=== PATIENT | male | born 1990 ===

== ENCOUNTER 2017-03-08 09:47 | Emergency (ER) | payer MEDICAID ==
[2017-03-08 09:53] VITALS: RESP 18
[2017-03-08] MEDS ORDERED: Sodium Chloride 0.9% 1,000 ML IV ONE (10:03)
[2017-03-08] MEDS ORDERED: Sodium Chloride 0.9% 1,000 ML ONE (10:05)
[2017-03-08 10:23] LABS: URINE AMORPHOUS SEDIMENT RARE /ul (<OCC); URINE BACTERIA RARE (<OCC); URINE BILIRUBIN NEGATIVE (NEGATIVE); URINE BLOOD NEGATIVE (NEGATIVE); URINE CLARITY Hazy (Clear); URINE COLOR Yellow (YELLOW); URINE GLUCOSE (UA) NORMAL (Normal); URINE LEUKOCYTE ESTERASE NEG Leu/uL (Negative); URINE NITRATE NEGATIVE (NEGATIVE); URINE PROTEIN 1+ mg/dL (NEGATIVE); URINE UROBILINOGEN NORMAL mg/dL (0.2-1.0)
[2017-03-08 10:25] LABS: BASO # 0.1 K/uL (0.0-0.2); BASO % 0.4 % (0.0-2.0); EOS # 0.2 K/uL (0.0-0.7); HEMOGLOBIN 14.1 g/dL (12.0-18.0); LYMPH # 2.5 K/uL (1.0-4.3); MEAN CELL VOLUME 82.1 fL (80.0-94.0); MEAN CORPUSCULAR HEMOGLOBIN 28.8 pg (27.0-31.0); MEAN PLATELET VOLUME 8.4 fL (7.2-11.7); MONO # 2.4 K/uL (0.0-0.8); MONO % 11.4 % (0.0-10.0); NEUT # 15.7 K/uL (1.8-7.0); NEUT % 75.2 % (50.0-75.0); RBC 4.92 Mil/uL (4.40-5.90); RED CELL DISTRIBUTION WIDTH 14.2 % (11.5-14.5)
--- NOTE | 2017-03-08 10:28 | RAD ---
HISTORY: abd pain COMPARISON: None available FINDINGS: BOWEL: Moderate constipation. Nonobstructive bowel gas pattern. No definite free air. BONES: No acute osseous abnormality is detected. OTHER FINDINGS: None. IMPRESSION: Moderate constipation.
[2017-03-08 10:31] LABS: WHITE BLOOD COUNT 20.9 K/uL (4.8-10.8)
--- NOTE | 2017-03-08 10:36 | C.PDOC ---
History Of Present Illness 26 year old male presents to the ED with complaints of vomiting, constipation, and abdominal pain for 10 days with associated decreased appetite. Patient states pain is a "cramping" sensation but notes today the pain is sharp, prompting visit. Last bowel movement was yesterday and patient denies fever, dysuria, or back pain. Time Seen by Provider: 03/08/17 09:57 Chief Complaint (Nursing): Abdominal Pain History Per: Patient History/Exam Limitations: no limitations Onset/Duration Of Symptoms: Days (10 days ) Current Symptoms Are (Timing): Still Present Location Of Pain/Discomfort: Epigastric, LUQ Quality Of Discomfort: Sharp, Cramping Associated Symptoms: Nausea, Vomiting, Constipation. denies: Fever, Chills, Diarrhea Last Bowel Movement: Yesterday Recent travel outside of the [place]: No Past Medical History Reviewed: Historical Data, Nursing Documentation, Vital Signs Vital Signs: Last Vital Signs Temp 98.3 F 03/08/17 12:21 Pulse 69 03/08/17 12:21 Resp 18 03/08/17 12:21 BP 150/93 H 03/08/17 12:21 Pulse Ox 99 03/08/17 13:55 - Medical History PMH: Asthma Surgical History: No Surg Hx Family History: States: Unknown Family Hx - Social History Hx Alcohol Use: No Hx Substance Use: Yes - Immunization History Hx Tetanus Toxoid Vaccination: No Hx Influenza Vaccination: No Hx Pneumococcal Vaccination: No Review Of Systems Constitutional: Negative for: Fever, Chills Cardiovascular: Negative for: Chest Pain Respiratory: Negative for: Shortness of Breath Gastrointestinal: Positive for: Nausea, Vomiting, Abdominal Pain, Constipation. Negative for: Diarrhea Genitourinary: Negative for: Dysuria Neurological: Negative for: Headache, Dizziness Physical Exam - Physical Exam Appears: Non-toxic, No Acute Distress Skin: Warm, Dry Head: Atraumatic, Normacephalic Eye(s): bilateral: Normal Inspection, EOMI Oral Mucosa: Moist Neck: Normal ROM, Supple Chest: Symmetrical, No Deformity Cardiovascular: Rhythm Regular Respiratory: Normal Breath Sounds, No Rhonchi, No Wheezing Gastrointestinal/Abdominal: Bowel Sounds (active), Soft, Tenderness (epigastric and LUQ tenderness), No Distention, No Guarding, No Rebound Back: Normal Inspection Extremity: Bilateral: Atraumatic, Normal Color And Temperature, Normal ROM Neurological/Psych: Oriented x3, Normal Speech Gait: Steady ED Course And Treatment - Laboratory Results Result Diagrams: 03/08/17 10:19 03/08/17 10:19 Lab Interpretation: Abnormal O2 Sat by Pulse Oximetry: 99 (room air ) Pulse Ox Interpretation: Normal - CT Scan/US CT Abdomen and Pelvis with contrast Other Rad Studies (CT/US): Read By Radiologist, Radiology Report Reviewed CT/US Interpretation: IMPRESSION: No acute abdominal or pelvic abnormality. Moderate amount of stool in the ascending and proximal transverse colon. No evidence of bowel obstruction. Reassessment Condition: Improved Medical Decision Making Medical Decision Makin26 year old male with epigastric and LUQ abdominal pain for over one week. Abdominal exam shows tenderness, no guarding. Orders placed for labs and abdominal xray. Labs showed leukocytosis and elevated lipase, add Ct scan of abdommen. Patient was given Pepcid, Toradol, Zofran, and IV fluids. CT results reviewed with no acute findings, no pancreatitis. Patient reevaluated and remained afebrile in no acute distress. He reports feeling better abdominal pain improved. Advise patient to drink water, increase fiber intake to help with constipation and will discharge with rx Disposition Counseled Patient/Family Regarding: Studies Performed, Diagnosis, Need For Followup, Rx Given - Disposition Referrals: [facility] [Outside] [facility] [Outside] Disposition: HOME/ ROUTINE Disposition Time: 12:09 Condition: IMPROVED Additional Instructions: Follow up with your primary medical doctor or clinic in 2-5 days for further evaluation. Take medications as prescribed. Return to the emergency department at any time if symptoms persist or worsen. Prescriptions: Atropine/Hyoscyamine [] 1 tab PO QID #20 tab Docusate [Colace] 100 mg PO Q8 #30 cap Magnesium Citrate [Citrate of Mag] 300 ml PO ONCE #1 bottle Instructions: Constipation (DC), Acute Abdominal Pain (DC) Forms: [facility] (Arabic) - POA Present On Arrival: None - Clinical Impression Clinical Impression: Upper abdominal pain - Scribe Statement The provider has reviewed the documentation as recorded by the Scribe Ghada Castillo All medical record entries made by the Scribe were at my direction and personally dictated by me. I have reviewed the chart and agree that the record accurately reflects my personal performance of the history, physical exam, medical decision making, and the department course for this patient. I have also personally directed, reviewed, and agree with the discharge instructions and disposition.
[2017-03-08 10:37] LABS: AST/SGOT 19 U/L (17-59); GFR AFRICAN-AMERICAN > 60; GFR NON-AFRICAN AMERICAN > 60
[2017-03-08 10:38] LABS: ALB/GLOB RATIO 0.9 (1.0-2.1); ALT/SGPT 28 U/L (21-72); BLOOD UREA NITROGEN 8 mg/dL (9-20); CALCIUM 9.5 mg/dl (8.6-10.4); LIPASE 700 U/L (23-300)
[2017-03-08] MEDS ORDERED: Iodixanol 320 MG/ML 100 ML BOTTLE IV ONE (11:16)
--- NOTE | 2017-03-08 11:51 | CT ---
PROCEDURE: CT Abdomen and Pelvis with contrast HISTORY: Left-sided abdominal pain COMPARISON: None. TECHNIQUE: CT scan of the abdomen and pelvis was performed after intravenous administration of contrast. Oral contrast was not administered. Coronal and sagittal reformatted images were obtained. Contrast dose: 100 mL Visipaque Radiation dose: Total exam DLP = 218.55 mGy-cm. This CT exam was performed using one or more of the following dose reduction techniques: Automated exposure control, adjustment of the mA and/or kV according to patient size, and/or use of iterative reconstruction technique. FINDINGS: LOWER THORAX: The lung bases are clear. LIVER: The liver is normal in size and there is homogeneous enhancement. No intrahepatic biliary ductal dilatation or focal mass. GALLBLADDER AND BILE DUCTS: There are no calcified gallstones. PANCREAS: The pancreas is normal in size and there is homogeneous enhancement without ductal dilatation or focal mass. SPLEEN: The spleen is normal in size without focal mass. ADRENALS: Both adrenal glands are normal in size without discrete nodule. KIDNEYS AND URETERS: Both kidneys are normal in size and there is homogeneous enhancement without hydronephrosis or focal mass. VASCULATURE: No aortic aneurysm. BOWEL: The small bowel loops are normal in caliber. There is moderate amount of stool in the ascending colon and rectum. No bowel dilatation or obstruction. APPENDIX: Normal appendix. PERITONEUM: No free fluid. No free air. LYMPH NODES: No enlarged lymph nodes. BLADDER: Unremarkable. REPRODUCTIVE: Unremarkable. BONES: No acute fracture. OTHER FINDINGS: None. IMPRESSION: No acute abdominal or pelvic abnormality. Moderate amount of stool in the ascending and proximal transverse colon. No evidence of bowel obstruction.
[2017-03-08 12:22] VITALS: BP 150/93; PULSE 69; TEMP 98.3
[2017-03-08 13:55] VITALS: O2SAT 99
== END 2017-03-08 12:34 | disposition home or self-care (01) ==
LOC: C.ER 09:47
DX: R10.9 Unspecified abdominal pain (principal)
CPT/HCPCS: 74000; 74177; 80053; 81001; 83690; 85025; 96374; 96375; 99284; J1885; J2405; J7040; Q9967

== ENCOUNTER 2017-03-09 22:55 | Emergency (ER) | payer MEDICAID ==
[2017-03-09 23:31] VITALS: RESP 20
--- NOTE | 2017-03-10 | C.PDOC ---
Time Seen by Provider: 03/10/17 00:00 Chief Complaint (Nursing): Abdominal Pain Past Medical History Vital Signs: Last Vital Signs Temp 98.1 F 03/09/17 23:26 Pulse 60 03/09/17 23:26 Resp 20 03/09/17 23:26 BP 131/89 03/09/17 23:26 Pulse Ox 96 03/09/17 23:26 - Medical History PMH: Asthma Family History: States: Unknown Family Hx - Social History Hx Alcohol Use: No Hx Substance Use: No - Immunization History Hx Tetanus Toxoid Vaccination: No Hx Influenza Vaccination: No Hx Pneumococcal Vaccination: No ED Course And Treatment O2 Sat by Pulse Oximetry: 96 Disposition Counseled Patient/Family Regarding: Studies Performed, Diagnosis - Disposition Disposition Time: 00:00 Forms: [employer] (Scottish)
[2017-03-10] MEDS ORDERED: Sodium Chloride 0.9% 1,000 ML IV ONE (00:25)
[2017-03-10] MEDS ORDERED: DiphenhydrAMINE 50 mg/ml Inj IVP STA (00:25)
--- NOTE | 2017-03-10 00:26 | C.PDOC ---
History Of Present Illness Patient presents to the ER with a complaint of an allergic reaction. Patient was seen in the ER yesterday for abdominal pain and given medication for constipation; he states after taking the medication, he began having a diffuse urticarial rash. Denies difficulty swallowing or difficulty breathing. Time Seen by Provider: 03/10/17 00:00 Chief Complaint (Nursing): Abdominal Pain History Per: Patient History/Exam Limitations: no limitations Onset/Duration Of Symptoms: Hrs Current Symptoms Are (Timing): Still Present Possible Cause: Medication Associated Symptoms: Skin Rash. denies: Swelling, Trouble Swallowing Home/EMS Treatment: None Severity: None Pain Scale Rating Of: 0 Recent travel outside of the [place]: No Past Medical History Reviewed: Historical Data, Nursing Documentation, Vital Signs Vital Signs: Last Vital Signs Temp 98.1 F 03/09/17 23:26 Pulse 60 03/09/17 23:26 Resp 20 03/09/17 23:26 BP 131/89 03/09/17 23:26 Pulse Ox 96 03/10/17 00:35 - Medical History PMH: Asthma Surgical History: No Surg Hx Family History: States: Unknown Family Hx - Social History Hx Alcohol Use: No Hx Substance Use: No - Immunization History Hx Tetanus Toxoid Vaccination: No Hx Influenza Vaccination: No Hx Pneumococcal Vaccination: No Review Of Systems ENT: Negative for: Mouth Swelling, Throat Pain, Throat Swelling Skin: Positive for: Rash Physical Exam - Physical Exam Appears: Non-toxic, No Acute Distress Skin: Warm, Dry, Rash (Diffuse urticaria throughout body) Oral Mucosa: Moist Chest: Symmetrical, No Tenderness Cardiovascular: Rhythm Regular, No Murmur Respiratory: No Rales, No Rhonchi, No Wheezing Gastrointestinal/Abdominal: Soft, No Tenderness Neurological/Psych: Oriented x3 ED Course And Treatment - Laboratory Results Result Diagrams: 03/10/17 00:48 03/10/17 00:48 O2 Sat by Pulse Oximetry: 96 (Room air) Pulse Ox Interpretation: Normal Progress Note: Blood work ordered. Benadryl, pepcid, solumedrol, and IV fluids administered. Reevaluation Time: 06:06 Reassessment Condition: Improved Disposition Counseled Patient/Family Regarding: Studies Performed, Diagnosis, Need For Followup, Rx Given - Disposition Referrals: [facility] [Outside] Disposition: HOME/ ROUTINE Disposition Time: 00:25 Condition: FAIR Additional Instructions: Please also use benadryl, pepcid and claritin Prescriptions: Prednisone [Deltasone] 20 mg PO DAILY #5 tablet Instructions: General Allergic Reaction (ED) Forms: [facility] (Maltese) - Clinical Impression Clinical Impression: Allergic reaction - Scribe Statement The provider has reviewed the documentation as recorded by the Scribe Xander Wiggins All medical record entries made by the Heatheribe were at my direction and personally dictated by me. I have reviewed the chart and agree that the record accurately reflects my personal performance of the history, physical exam, medical decision making, and the department course for this patient. I have also personally directed, reviewed, and agree with the discharge instructions and disposition.
[2017-03-10] MEDS ORDERED: DiphenhydrAMINE 50 mg/ml Inj ONE (00:32)
[2017-03-10] MEDS ORDERED: Sodium Chloride 0.9% 1,000 ML ONE (00:33)
[2017-03-10 00:51] LABS: BASO # 0.1 K/uL (0.0-0.2); BASO % 0.6 % (0.0-2.0); EOS # 0.1 K/uL (0.0-0.7); EOS % 0.9 % (0.0-4.0); HEMOGLOBIN 14.5 g/dL (12.0-18.0); LYMPH # 2.8 K/uL (1.0-4.3); LYMPH % 19.4 % (20.0-40.0); MEAN CELL VOLUME 82.8 fL (80.0-94.0); MEAN CORPUSCULAR HEMOGLOBIN 28.6 pg (27.0-31.0); MEAN CORPUSCULAR HGB CONC 34.6 g/dL (33.0-37.0); MEAN PLATELET VOLUME 8.7 fL (7.2-11.7); MONO # 1.5 K/uL (0.0-0.8); MONO % 9.9 % (0.0-10.0); NEUT # 10.2 K/uL (1.8-7.0); NEUT % 69.2 % (50.0-75.0); NRBC % 0.1 % (0.0-2.0); RBC 5.06 Mil/uL (4.40-5.90); WHITE BLOOD COUNT 14.7 K/uL (4.8-10.8)
[2017-03-10 01:07] LABS: GFR AFRICAN-AMERICAN > 60; GFR NON-AFRICAN AMERICAN > 60
[2017-03-10 01:08] LABS: ALB/GLOB RATIO 0.9 (1.0-2.1); ALT/SGPT 32 U/L (21-72); AST/SGOT 22 U/L (17-59); BLOOD UREA NITROGEN 12 mg/dL (9-20); CALCIUM 9.4 mg/dl (8.6-10.4); LIPASE 579 U/L (23-300)
[2017-03-10 01:11] LABS: BENZODIAZEPINES, UR NEGATIVE (NEGATIVE)
[2017-03-10 01:12] LABS: BARBITURATES, UR NEGATIVE (NEGATIVE)
[2017-03-10 01:14] LABS: OPIATES, UR NEGATIVE (NEGATIVE)
[2017-03-10 01:15] LABS: PHENCYCLIDINE, UR NEGATIVE (NEGATIVE)
[2017-03-10 06:25] VITALS: BP 126/72; PULSE 84; TEMP 98; O2SAT 98
== END 2017-03-10 06:23 | disposition home or self-care (01) ==
LOC: C.ER 22:55
DX: T78.49XA Other allergy, initial encounter (principal); X58.XXXA Exposure to other specified factors, initial encounter
CPT/HCPCS: 80053; 80324; 80345; 80346; 80349; 80353; 80358; 80361; 83690; 83992; 85025; 96361; 96374; 96375; 99285; J1200; J2930; J7040